=== PATIENT | male | born 1975 | race Two or more races ===

== ENCOUNTER 2017-02-03 23:54 | Emergency (ER) | payer SELFPAY ==
[~2017-02-03] VITALS: Ht 182.9 cm; Wt 108.9 kg
[2017-02-04 01:10] VITALS: BP 140/98
[2017-02-04] MEDS ORDERED: IBUPROFEN 600 MG TABLET. PO ONE (02:30)
[2017-02-04] MEDS ORDERED: IBUP-1007 PO (02:36)
--- NOTE | 2017-02-04 02:37 | PHYS DOC ---
Past Medical History Past Medical History: No Pertinent History Past Surgical History Right lower extremity orthopedic surgery Adult General Chief Complaint Chief Complaint: FOOT INJURY PAIN HPI HPI Patient is a 41 year old male who presents with complaint of right foot pain. Patient states that he was moving furniture in his house and actually dropped the furniture on his right foot approximately 3 hours prior to arrival. Patient states that he is having significant pain to the right foot and notes that he has had swelling. Patient has been ambulatory but states that he has pain with weightbearing on the right foot. Patient denies any other injuries. Patient rates his pain on my evaluation as 8 out of 10 currently. Patient states that the pain is localized to the dorsum of the right foot. Pain worsens with range of motion. Patient has not taken any medications to help with his symptoms. Patient did apply ice prior to arrival with minimal improvement and swelling. Review of Systems Review of Systems Constitutional: Denies fever or chills [] Musculoskeletal: Right foot pain, swelling[] Integument: Denies rash or skin lesions [] Neurologic: Denies headache, focal weakness or sensory changes [] Current Medications Current Medications Current Medications Medications (Trade) Dose Ordered Sig/Tanner Start Time Stop Time Status Last Admin Dose Admin Ibuprofen (Motrin) 600 mg 1X ONCE 02/04/17 02:30 02/04/17 03:01 DC 02/04/17 02:50 600 MG Allergies Allergies Allergies Coded Allergies Type Severity Reaction Last Updated Verified No Known Drug Allergies 02/04/17 No Physical Exam Physical Exam Constitutional: Well developed, well nourished, no acute distress, non-toxic appearance. [] HENT: Normocephalic, atraumatic, bilateral external ears normal, oropharynx moist, no oral exudates, nose normal. [] Skin: Warm, dry, no erythema, no rash. [] Extremities: Moderate soft tissue swelling over dorsum of right foot with mild overlying abrasion, localized tenderness to palpation along dorsum of right foot , normal range of motion present, normal capillary refill and normal sensation in all 5 digits of the right foot.. [] Neurologic: Alert and oriented X 3, normal motor function, normal sensory function, no focal deficits noted. [] Current Patient Data Vital Signs Vital Signs Date Time Temp Pulse Resp B/P (MAP) Pulse Ox O2 Delivery O2 Flow Rate FiO2 02/04/17 01:10 97.9 63 18 97 Room Air 97.9 EKG EKG Not performed[] Radiology/Procedures Radiology/Procedures 3 view x-ray of right foot interpreted by me: No fractures, moderate soft tissue swelling over dorsum of right foot, no dislocations[] Course & Med Decision Making Course & Med Decision Making Pertinent Labs and Imaging studies reviewed. (See chart for details) X-rays were negative for fracture. Patient given Motrin in the emergency department an Abner wrap was applied to the right foot. Recommended continued RICE therapy with recommended follow-up in 7 days with primary doctor if symptoms are not improving. Advised return emergency department for any worsening symptoms. Patient voiced understanding and in agreement with treatment plan. Dragon Disclaimer Dragon Disclaimer This electronic medical record was generated, in whole or in part, using a voice recognition dictation system. Departure Departure Impression: Primary Impression: Contusion of right foot Disposition: HOME, SELF-CARE Condition: IMPROVED Referrals: NO PCP (PCP) Patient Instructions: Foot Contusion, RICE - Routine Care for Injuries Additional Instructions: Follow-up to primary doctor in 1 week if symptoms are not improving. Return to emergency department for any worsening symptoms. Scripts Ibuprofen (IBUPROFEN) 600 Mg Tablet 600 MG PO Q6HRS Y for INFLAMMATION, #30 TAB Prov: TERESA YOUNGER MD 02/04/17 Problem Qualifiers Primary Impression: Contusion of right foot Encounter type: initial encounter Qualified Codes: S90.31XA - Contusion of right foot, initial encounter TERESA YOUNGER MD Feb 04, 2017 02:37
--- NOTE | 2017-02-04 07:15 | RAD ---
Right foot, 3 views, 02/04/2017: History: Injury, foot pain No acute fracture or dislocation is identified. The inferior aspect of an intramedullary nicole is evident in the distal tibia. IMPRESSION: No acute bony abnormality is detected.
== END 2017-02-04 02:52 | disposition home or self-care (01) ==
LOC: ER 23:54
DX: S90.31XA Contusion of right foot, initial encounter (principal); W20.8XXA Other cause of strike by thrown, projected or falling object, initial encounter; Y93.89 Activity, other specified; Y92.89 Other specified places as the place of occurrence of the external cause; Y99.8 Other external cause status
CPT/HCPCS: 73630; 99284